=== PATIENT | female | born 1990 | race Caucasian/White ===

== ENCOUNTER 2017-12-02 17:19 | Emergency (ER) | payer OTHER ==
[~2017-12-02] VITALS: Ht 162.6 cm; Wt 68.0 kg
[~2017-12-02 17:19] MED LIST: ALPR.5 PO; ALPR1 PO; AMOX875 PO; AZIT250 PO; Amoxicillin500 MG PO; Augmentin 875-1 EACH PO; BIRTH CONTROL; BUPR150ER PO; Bactroban22 GM TOP; CALCA500CH PO; CEPH500; CEPH500 PO; CIPR500 PO; CITA20 PO; CODACE30 PO; CODGUAEL PO; CRUTCH4 USE; DEPO PROVERA IM; ERYT.5TO OU; ESCI10; ESCI10 PO; ESCI20 PO; ESCI5 PO; FAMO20 PO; FLUT110OIA IH; HYDACE5 PO; HYDHCL10 PO; IBUP400 PO; IBUP600 PO; IBUP800 PO; KEFLEX; Keflex500 MG PO; LACT10SY PO; LITH300C PO; MEDR150I; MEDR150I IM; MULVITMINE PO; Norco 5-325 Ta1 EACH PO; ONDA4 PO; ONDA4ODT MM; ONDA8ODT MM; ORTHO TRI CYCLEN; OXYACE5T PO; PENVK500; PERM5TC TOP; PHENERGAN; POTCHL20ER PO; PROACE100 PO; PROC10 PO; PROCODE120 PO; PROM25 PO; Percocet 5-3251 EACH PO; Prednisone20 MG PO; RXCODGUASY PO; RXHYD5325 PO; RXHYDACE PO; RXONDA4ODT MM; RXPROACE PO; Robaxin500 MG PO; SULTRIDS PO; TYLENOL PM EX-1 EAC1 PO; Veetids 500500 MG PO; Zofran Odt8 MG SL
[2017-12-02 18:29] LABS: BASOPHILS ABSOLUTE AUTO 0.02 K/mm3 (0.00-0.23); BASOPHILS PERCENT AUTO 0 % (0-2); EOSINOPHILS PERCENT AUTO 0 % (0-6); Hematocrit 39.6 % (33.0-51.0); Hemoglobin 12.7 g/dL (11.5-16.0); IMMATURE GRAN ABSOLUTE AUTO 0.06 K/mm3 (0.00-0.10); IMMATURE GRAN PERCENT AUTO 1 % (0-1); LYMPHOCYTES ABSOLUTE AUTO 1.07 K/mm3 (0.84-5.20); LYMPHOCYTES PERCENT AUTO 8 % (21-46); MONOCYTES ABSOLUTE AUTO 1.42 K/mm3 (0.16-1.47); MONOCYTES PERCENT AUTO 11 % (4-13); Mean Corpuscular HGB 26.5 pg (26.0-34.0); Mean Corpuscular HGB Conc 32.1 g/dL (31.5-36.5); Mean Corpuscular Volume 83 fL (80-100); Mean Platelet Volume 10.5 fL (9.1-12.4); NEUTROPHILS ABSOLUTE AUTO 10.67 K/mm3 (1.96-9.15); NEUTROPHILS PERCENT AUTO 81 % (41-73); Platelet Count 231 K/mm3 (150-400); RDW Coefficient Variation 13.1 % (11.7-14.2); RDW Standard Deviation 39.6 fL (35.1-46.3); Red Blood Cell Count 4.79 M/mm3 (3.80-5.20); White Blood Cell Count 13.24 K/mm3 (4.00-11.30)
[2017-12-02 18:45] LABS: Alanine Aminotransfer (ALT/SGP 22 U/L (12-78); Albumin, Blood 3.6 g/dL (3.4-5.0); Albumin/Globulin Ratio 1.1 (0.8-1.8); Alk Phos 83 U/L (50-136); Anion Gap 5 mmol/L (6-16); Aspartate Aminotrans (AST/SGOT 12 U/L (12-37); Bilirubin, Total 0.3 mg/dL (0.1-1.0); Blood Urea Nitrogen 5 mg/dL (8-24); Bun/Creatinine Ratio 7.6 (12.0-20.0); CO2, Blood 28 mmol/L (21-32); Calcium, Blood 8.5 mg/dL (8.5-10.1); Chloride, Blood 103 mmol/L (98-108); Creatinine, Blood 0.66 mg/dL (0.40-1.00); Globulin, Blood 3.4 g/dL (2.2-4.0); Glomerular Filtration Rate >60 (60-); Glucose, Blood 97 mg/dL (70-99); Potassium, Blood 3.8 mmol/L (3.5-5.5); Sodium, Blood 136 mmol/L (136-145)
[2017-12-02 19:29] LABS: Influenza A Negative (NEGATIVE); Influenza B Negative (NEGATIVE)
[2017-12-02] MEDS ORDERED: Amoxicillin875 MG PO (19:54)
[2017-12-02] MEDS ORDERED: NYST237S MT (19:55)
== END 2017-12-02 20:10 | disposition home or self-care (01) ==
LOC: ER 17:19
PROVIDERS: Emergency Medicine; Physician Assistant
DX: J02.0 Streptococcal pharyngitis (principal); F41.9 Anxiety disorder, unspecified; G43.909 Migraine, unspecified, not intractable, without status migrainosus; F32.9 Major depressive disorder, single episode, unspecified; F17.210 Nicotine dependence, cigarettes, uncomplicated
CPT/HCPCS: 36415; 71046; 80053; 81000; 81025; 83605; 85025; 87081; 87430; 87804; 96361; 96374; 99283; J1100; J1885; J7030

== ENCOUNTER 2018-02-10 04:48 | Emergency (ER) | payer OTHER ==
[~2018-02-10] VITALS: Ht 162.6 cm; Wt 63.5 kg
[~2018-02-10 04:48] MED LIST changes: +Amoxicillin875 MG PO; +NYST237S MT
[2018-02-10] MEDS ORDERED: LATUDA20 MG (05:05)
[2018-02-10] MEDS ORDERED: LAMO25 (05:05)
[2018-02-10] MEDS ORDERED: Vistaril50 MG PO (05:16)
[2018-02-11] MEDS ORDERED: Pepcid40 MG PO (18:43)
[2018-02-11] MEDS ORDERED: CLARITIN10 MG PO (18:43)
[2018-02-11] MEDS ORDERED: Prednisone20 MG PO (18:43)
== END 2018-02-10 05:41 | disposition home or self-care (01) ==
LOC: ER 04:48
DX: L25.9 Unspecified contact dermatitis, unspecified cause (principal); F41.9 Anxiety disorder, unspecified; F32.9 Major depressive disorder, single episode, unspecified; F17.210 Nicotine dependence, cigarettes, uncomplicated; Z79.899 Other long term (current) drug therapy
CPT/HCPCS: J1100

== ENCOUNTER 2018-02-11 16:58 | Emergency (ER) | payer OTHER ==
[~2018-02-11] VITALS: Ht 162.6 cm; Wt 63.5 kg
[~2018-02-11 16:58] MED LIST changes: +LAMO25; +LATUDA20 MG; +Vistaril50 MG PO
[2018-02-11] MEDS ORDERED: Prednisone20 MG PO (18:43)
[2018-02-11] MEDS ORDERED: Pepcid40 MG PO (18:43)
[2018-02-11] MEDS ORDERED: CLARITIN10 MG PO (18:43)
== END 2018-02-11 19:15 | disposition home or self-care (01) ==
LOC: ER 16:58
DX: T78.40XA Allergy, unspecified, initial encounter (principal); F41.9 Anxiety disorder, unspecified; F32.9 Major depressive disorder, single episode, unspecified; F17.210 Nicotine dependence, cigarettes, uncomplicated; Z79.899 Other long term (current) drug therapy
CPT/HCPCS: 96372; 99283; J1100

== ENCOUNTER 2018-07-03 02:46 | Emergency (ER) | payer OTHER ==
[~2018-07-03] VITALS: Ht 162.6 cm; Wt 59.0 kg
[~2018-07-03 02:46] MED LIST changes: +CLARITIN10 MG PO; +Pepcid40 MG PO
[2018-07-03 03:49] LABS: BASOPHILS ABSOLUTE AUTO 0.03 K/mm3 (0.00-0.23); BASOPHILS PERCENT AUTO 0 % (0-2); EOSINOPHILS ABSOLUTE AUTO 0.07 K/mm3 (0.00-0.68); EOSINOPHILS PERCENT AUTO 1 % (0-6); Hematocrit 43.1 % (33.0-51.0); Hemoglobin 13.9 g/dL (11.5-16.0); IMMATURE GRAN ABSOLUTE AUTO 0.02 K/mm3 (0.00-0.10); IMMATURE GRAN PERCENT AUTO 0 % (0-1); LYMPHOCYTES ABSOLUTE AUTO 1.85 K/mm3 (0.84-5.20); LYMPHOCYTES PERCENT AUTO 27 % (21-46); MONOCYTES ABSOLUTE AUTO 0.82 K/mm3 (0.16-1.47); MONOCYTES PERCENT AUTO 12 % (4-13); Mean Corpuscular HGB 27.1 pg (26.0-34.0); Mean Corpuscular HGB Conc 32.3 g/dL (31.5-36.5); Mean Corpuscular Volume 84 fL (80-100); Mean Platelet Volume 9.8 fL (9.1-12.4); NEUTROPHILS ABSOLUTE AUTO 4.16 K/mm3 (1.96-9.15); NEUTROPHILS PERCENT AUTO 60 % (41-73); Platelet Count 272 K/mm3 (150-400); RDW Standard Deviation 39.8 fL (35.1-46.3); Red Blood Cell Count 5.12 M/mm3 (3.80-5.20); White Blood Cell Count 6.95 K/mm3 (4.00-11.30)
[2018-07-03 03:53] LABS: Source, Urine Clean Catch
[2018-07-03 03:55] LABS: Bilirubin, Urine Neg (Neg); Blood, Urine Neg (Neg); Glucose Qualitative, Urine Neg (Neg); Ketones, Urine Neg (Neg); Leukocyte Esterase, Urine 2+ (Neg); Nitrite, Urine Neg (Neg); Protein, Urine 1+ (Neg); Specific Gravity, Urine 1.025 (1.003-1.022); Urobilinogen, Urine 1+ (Normal)
[2018-07-03 04:09] LABS: Appearance, Urine Hazy (Clear); Color, Urine Yellow (P-Yellow)
[2018-07-03 04:12] LABS: Red Blood Cells, Urine 0-2 /hpf (0-2)
[2018-07-03 04:13] LABS: Bacteria Mod /hpf; Squamous Epithelial Cells Few /hpf (Few)
== END 2018-07-03 04:12 | disposition left against medical advice (07) ==
LOC: ER 02:46
PROVIDERS: Emergency Medicine
DX: N93.9 Abnormal uterine and vaginal bleeding, unspecified (principal); F41.9 Anxiety disorder, unspecified; F32.9 Major depressive disorder, single episode, unspecified; F17.210 Nicotine dependence, cigarettes, uncomplicated; Z79.899 Other long term (current) drug therapy
CPT/HCPCS: 36415; 81001; 84702; 85025; 87086; 99283

== ENCOUNTER 2018-08-26 21:47 | Emergency (ER) | payer OTHER ==
[~2018-08-26] VITALS: Wt 64.2 kg
[~2018-08-26 21:47] MED LIST changes: +Bactrim Ds Tab1 EACH PO; +LEVO750 PO
[2018-08-26 22:09] LABS: Source, Urine Clean Catch
[2018-08-26 22:12] LABS: Bilirubin, Urine Neg (Neg); Blood, Urine Neg (Neg); Glucose Qualitative, Urine Neg (Neg); Ketones, Urine Neg (Neg); Leukocyte Esterase, Urine 2+ (Neg); Nitrite, Urine Neg (Neg); Protein, Urine 1+ (Neg); Urobilinogen, Urine NORM (Normal)
[2018-08-26 22:29] LABS: Color, Urine Yellow (P-Yellow)
[2018-08-26 22:30] LABS: Appearance, Urine Clear (Clear); Bacteria Many /hpf; Red Blood Cells, Urine 0-2 /hpf (0-2); Squamous Epithelial Cells Mod /hpf (Few)
[2018-08-26 22:31] LABS: Mucus Light (0-Heavy)
== END 2018-08-26 22:30 | disposition left against medical advice (07) ==
LOC: ER 21:47
PROVIDERS: Emergency Medicine
DX: Z53.21 Procedure and treatment not carried out due to patient leaving prior to being seen by health care provider (principal)
CPT/HCPCS: 81001; 81025; 87086

== ENCOUNTER 2018-08-26 23:03 | Observation (INO) | payer OTHER ==
[~2018-08-26] VITALS: Ht 162.6 cm; Wt 64.2 kg
[2018-08-26 23:37] LABS: BASOPHILS ABSOLUTE AUTO 0.04 K/mm3 (0.00-0.23); BASOPHILS PERCENT AUTO 0 % (0-2); EOSINOPHILS ABSOLUTE AUTO 0.03 K/mm3 (0.00-0.68); EOSINOPHILS PERCENT AUTO 0 % (0-6); Hematocrit 43.5 % (33.0-51.0); Hemoglobin 13.8 g/dL (11.5-16.0); IMMATURE GRAN ABSOLUTE AUTO 0.06 K/mm3 (0.00-0.10); IMMATURE GRAN PERCENT AUTO 0 % (0-1); LYMPHOCYTES PERCENT AUTO 14 % (21-46); MONOCYTES ABSOLUTE AUTO 1.23 K/mm3 (0.16-1.47); MONOCYTES PERCENT AUTO 7 % (4-13); Mean Corpuscular HGB 27.3 pg (26.0-34.0); Mean Corpuscular HGB Conc 31.7 g/dL (31.5-36.5); Mean Corpuscular Volume 86 fL (80-100); NEUTROPHILS ABSOLUTE AUTO 13.15 K/mm3 (1.96-9.15); NEUTROPHILS PERCENT AUTO 78 % (41-73); Platelet Count 300 K/mm3 (150-400); RDW Coefficient Variation 13.4 % (11.7-14.2); RDW Standard Deviation 41.4 fL (35.1-46.3); Red Blood Cell Count 5.06 M/mm3 (3.80-5.20); White Blood Cell Count 16.81 K/mm3 (4.00-11.30)
[2018-08-27 00:02] LABS: Alanine Aminotransfer (ALT/SGP 28 U/L (12-78); Albumin, Blood 4.1 g/dL (3.4-5.0); Albumin/Globulin Ratio 1.1 (0.8-1.8); Alk Phos 84 U/L (50-136); Anion Gap 10 mmol/L (6-16); Aspartate Aminotrans (AST/SGOT 17 U/L (12-37); Bilirubin, Total 0.1 mg/dL (0.1-1.0); Blood Urea Nitrogen 19 mg/dL (8-24); Bun/Creatinine Ratio 22.4 (12.0-20.0); CO2, Blood 24 mmol/L (21-32); Calcium, Blood 8.9 mg/dL (8.5-10.1); Chloride, Blood 107 mmol/L (98-108); Creatinine, Blood 0.85 mg/dL (0.40-1.00); Ethanol (Alcohol), Blood, Med <3 mg/dL; Globulin, Blood 3.9 g/dL (2.2-4.0); Glomerular Filtration Rate >60 (60-); Glucose, Blood 102 mg/dL (70-99); Potassium, Blood 3.7 mmol/L (3.5-5.5); Salicylate <1.7 mg/dL (2.8-20.0); Sodium, Blood 141 mmol/L (136-145)
[2018-08-27 00:06] LABS: Acetaminophen, Random <2.0 ug/mL (10.0-30.0)
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
[2018-08-27 04:29] LABS: U Amphetamine Screen Not Detected; U Barbituate Screen Not Detected; U Benzodiazapine Screen DETECTED; U Buprenorphine Screen Not Detected; U Cannabinoids Screen Not Detected; U Cocaine Screen Not Detected; U Methadone Screen Not Detected; U Methamphetamine Screen DETECTED; U Opiates Screen Not Detected; U Oxycodone Screen Not Detected; U Phencyclidine Screen Not Detected; U Propoxyphene Screen Not Detected
[2018-08-27 05:17] LABS: Source, Urine Clean Catch
[2018-08-27 05:20] LABS: Hematocrit 40.1 % (33.0-51.0); Hemoglobin 12.6 g/dL (11.5-16.0); Mean Corpuscular HGB 26.8 pg (26.0-34.0); Mean Corpuscular HGB Conc 31.4 g/dL (31.5-36.5); Mean Corpuscular Volume 85 fL (80-100); Mean Platelet Volume 9.8 fL (9.1-12.4); Platelet Count 258 K/mm3 (150-400); RDW Coefficient Variation 13.5 % (11.7-14.2); RDW Standard Deviation 42.1 fL (35.1-46.3); Red Blood Cell Count 4.71 M/mm3 (3.80-5.20); White Blood Cell Count 24.02 K/mm3 (4.00-11.30)
[2018-08-27 05:22] LABS: Bilirubin, Urine Neg (Neg); Blood, Urine Neg (Neg); Glucose Qualitative, Urine Neg (Neg); Ketones, Urine 1+ (Neg); Leukocyte Esterase, Urine Neg (Neg); Nitrite, Urine Neg (Neg); Protein, Urine Neg (Neg); Specific Gravity, Urine 1.025 (1.003-1.022); Urobilinogen, Urine NORM (Normal)
[2018-08-27 05:46] LABS: Alanine Aminotransfer (ALT/SGP 24 U/L (12-78); Albumin, Blood 3.8 g/dL (3.4-5.0); Albumin/Globulin Ratio 1.1 (0.8-1.8); Alk Phos 77 U/L (50-136); Anion Gap 10 mmol/L (6-16); Aspartate Aminotrans (AST/SGOT 25 U/L (12-37); Bilirubin, Total 0.3 mg/dL (0.1-1.0); Blood Urea Nitrogen 19 mg/dL (8-24); Bun/Creatinine Ratio 29.4 (12.0-20.0); CO2, Blood 24 mmol/L (21-32); Calcium, Blood 8.4 mg/dL (8.5-10.1); Chloride, Blood 107 mmol/L (98-108); Creatinine, Blood 0.65 mg/dL (0.40-1.00); Globulin, Blood 3.4 g/dL (2.2-4.0); Glomerular Filtration Rate >60 (60-); Glucose, Blood 102 mg/dL (70-99); Potassium, Blood 3.7 mmol/L (3.5-5.5); Sodium, Blood 141 mmol/L (136-145); Total Protein, Blood 7.2 g/dL (6.4-8.2)
[2018-08-27 05:53] LABS: Color, Urine Yellow (P-Yellow)
[2018-08-27 05:54] LABS: Appearance, Urine Clear (Clear)
--- NOTE | 2018-08-27 10:14 | NUR ---
RECIEVED FOLLOW UP CALL FROM MAGGIE BYRD, SPOKE WITH ANGELI. HIS RECOMMENDATION WAS THAT THE PATIENT HAVE A SCOPE WITHIN THE FIRST 24 HOURS OF INGESTION. RN SPOKE WITH DR. JAUREGUI.
--- NOTE | 2018-08-27 12:39 | NUR ---
ELVIS HAS NEW COMPLAINT OF SHARP PAIN IN LUQ. RN RECHECKED VS TEMP 100.3, PULSE 108, BP 112/68, RR 18, PULSE OX 98%. PATIENT IS SLEEPING DURING THIS TIME. UNCOOPERATIVE WITH ANSWERING MY QUESTIONS REGARDING THE PAIN. DENIES SOB, STATES ITS DIFFICULT TO SWALLOW. NPO AT THIS TIME UNTIL SEEN BY GI CONSULT. DR. GOULD NOTIFIED. PATIENT CURRENTLY SLEEPING. RN WILL CONTINUE TO MONITOR.
--- NOTE | 2018-08-27 15:55 | NUR ---
08/27/18 1555 Munira Abdullahi History, Chart, Medications and Allergies reviewed before start of procedure.PATIENT DETERMINED TO BE ASA APPROPRIATE FOR PROPOFOL SEDATION PRIOR TO START OF PROCEDURE BY .MONITOR INTACT WITH CONTINUOUS PULSE OXIMETRY AND INTERMITTENT BP.3-LEAD EKG REVIEWED WITH PHYSICIAN PRIOR TO START OF PROCEDURE.O2 VIA N/C INTACT THROUGHOUT SEDATION/PROCEDURE.
--- NOTE | 2018-08-27 17:05 | NUR ---
PATIENT RETURNED FROM PROCEDURE AT 1625. VSS. STILL VERY SLEEPY BUT IS AROUSABLE TO ANSWER QUESTIONS. FLUIDS RESTARTED PER ORDERS. PATIENT RESTING COMFORTABLY. RN WILL CONTINUE TO MONITOR.
--- NOTE | 2018-08-27 18:26 | NUR ---
SHIFT SUMMARY PATIENT A&O X4, HAS BEEN SLEEPING THROUGHOUT THE SHIFT. IV ABX RUNNING. DENIED SOB BUT SAID THAT IT HURT HER TO SWALLOW. HAD COMPLAINTS OF A NEW LUQ PAIN, STATED IT WAS A SHARP STABBING PAIN. RN NOTIFIED DR. KANG, PATIENT WAS SLEEPING WHEN I RETURNED TO THE ROOM TO REASSES DID NOT SEEM TO BE IN ANY ACUTE DISTRESS. WENT FOR AN EDG TODAY. RETURNED TO HER ROOM AT 1620. WAS VERY SLEEPU ON RETURN, WOULD ANSWER YES AND NO QUESTIONS FOR THE NURSE. AT TIMES THE PATIENT WOULD NOT ANSWER ANY OF MY QUESTIONS AND LOOK THOUGH SHE WAS SLEEPING BUT WHEN I LEFT THE ROOM WOULD BE TALKING TO HER GUESTS. DR. JAUREGUI WAS IN TO SEE THE PATIENT, STARTED HER ON CLEAR LIQUID DIET. PATIENT IS STILL RESTING. FAMILY AT THE BEDSIDE. VSS. FLUIDS RUNNING. NO ACUTE CHANGES. RN WILL CONTINUE TO MONITOR.
[2018-08-28 05:23] LABS: BASOPHILS ABSOLUTE AUTO 0.05 K/mm3 (0.00-0.23); BASOPHILS PERCENT AUTO 0 % (0-2); EOSINOPHILS ABSOLUTE AUTO 0.03 K/mm3 (0.00-0.68); EOSINOPHILS PERCENT AUTO 0 % (0-6); Hematocrit 40.5 % (33.0-51.0); Hemoglobin 12.7 g/dL (11.5-16.0); IMMATURE GRAN ABSOLUTE AUTO 0.07 K/mm3 (0.00-0.10); IMMATURE GRAN PERCENT AUTO 0 % (0-1); LYMPHOCYTES ABSOLUTE AUTO 1.78 K/mm3 (0.84-5.20); LYMPHOCYTES PERCENT AUTO 11 % (21-46); MONOCYTES ABSOLUTE AUTO 1.26 K/mm3 (0.16-1.47); MONOCYTES PERCENT AUTO 8 % (4-13); Mean Corpuscular HGB 27.4 pg (26.0-34.0); Mean Corpuscular HGB Conc 31.4 g/dL (31.5-36.5); Mean Corpuscular Volume 87 fL (80-100); Mean Platelet Volume 10.1 fL (9.1-12.4); NEUTROPHILS ABSOLUTE AUTO 13.36 K/mm3 (1.96-9.15); NEUTROPHILS PERCENT AUTO 81 % (41-73); Platelet Count 257 K/mm3 (150-400); RDW Coefficient Variation 13.9 % (11.7-14.2); RDW Standard Deviation 44.6 fL (35.1-46.3); Red Blood Cell Count 4.64 M/mm3 (3.80-5.20); White Blood Cell Count 16.55 K/mm3 (4.00-11.30)
[2018-08-28 05:46] LABS: Anion Gap 6 mmol/L (6-16); Blood Urea Nitrogen 8 mg/dL (8-24); Bun/Creatinine Ratio 13.7 (12.0-20.0); CO2, Blood 26 mmol/L (21-32); Calcium, Blood 8.4 mg/dL (8.5-10.1); Chloride, Blood 108 mmol/L (98-108); Creatinine, Blood 0.58 mg/dL (0.40-1.00); Glomerular Filtration Rate >60 (60-); Glucose, Blood 96 mg/dL (70-99); Potassium, Blood 4.2 mmol/L (3.5-5.5); Sodium, Blood 140 mmol/L (136-145)
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
[2018-08-28] MEDS ORDERED: DOCU100 PO (10:36)
[2018-08-28] MEDS ORDERED: PANT40 PO (10:38)
[2018-08-28] MEDS ORDERED: NICO21TP TOP (10:40)
--- NOTE | 2018-08-28 12:05 | NUR ---
DISCHARGE NOTE MEDICATIONS FAXED TO PREFERED PHARMACY. IV DC'D WNL. PT PROVIDED WITH HARDCOPY AND VERBAL INSTRUCTIONS FOR DISCHARGE INCLUDING: DIAGNOSES, FOLLOW UP APPOINTMENT INSTRUCTIONS, DIETARY GUIDELINES AND RECOMMENDATIONS, AND MEDICATION INSTRUCTIONS. PT HAD NO FURTHER QUESTIONS. PT IS INDEPENDENT AND DRESSED HERSELF. PT DECLINED ESCORT AND WAS ESCORTED OUT BY FAMILY MEMBER.
== END 2018-08-28 12:05 | disposition home or self-care (01) ==
LOC: ER 23:03 → MEDS 23:04 → ER 08-27 01:43 → MEDS 08-27 01:54 → ENPENDDIS 08-28 09:54 → EDPENDDIS 08-28 09:54 → MEDS 08-28 12:05
PROVIDERS: Emergency Medicine; Internal Medicine; Internal Medicine Gastroenterology; ADMIT Internal Medicine
PROC: 0DJ08ZZ Inspection of Upper Intestinal Tract, Via Natural or Artificial Opening Endoscopic (ICD-10-PCS; principal; 2018-08-27 15:00)
DX: T54.3X2A Toxic effect of corrosive alkalis and alkali-like substances, intentional self-harm, initial encounter (principal); J39.2 Other diseases of pharynx; K22.10 Ulcer of esophagus without bleeding; K25.9 Gastric ulcer, unspecified as acute or chronic, without hemorrhage or perforation; F31.9 Bipolar disorder, unspecified; F41.9 Anxiety disorder, unspecified; M54.9 Dorsalgia, unspecified; G89.29 Other chronic pain; F17.210 Nicotine dependence, cigarettes, uncomplicated; F15.10 Other stimulant abuse, uncomplicated; Z79.899 Other long term (current) drug therapy
CPT/HCPCS: 36415; 80048; 80053; 81001; 81003; 81025; 84443; 85025; 85027; 87086; 93005; 93010; 96361; 96372; 96374; 96375; 96376; 99285-25; C9113; G0378; G0480; J1200; J1630; J1650; J2060; J2250; J7030; J7120

== ENCOUNTER 2018-11-18 14:53 | Emergency (ER) | payer OTHER ==
[~2018-11-18 14:53] MED LIST changes: +DOCU100 PO; +NICO21TP TOP; +PANT40 PO
== END 2018-11-18 16:33 | disposition left against medical advice (07) ==
LOC: ER 14:53
DX: Z53.21 Procedure and treatment not carried out due to patient leaving prior to being seen by health care provider (principal)

== ENCOUNTER 2018-11-19 00:45 | Emergency (ER) | payer OTHER ==
[2018-11-19 02:52] LABS: Source, Urine Clean Catch
[2018-11-19 02:59] LABS: Appearance, Urine Hazy (Clear); Blood, Urine 2+ (Neg); Glucose Qualitative, Urine Neg (Neg); Ketones, Urine Neg (Neg); Leukocyte Esterase, Urine 3+ (Neg); Nitrite, Urine Pos (Neg); Protein, Urine 2+ (Neg); Specific Gravity, Urine 1.015 (1.003-1.022); Urobilinogen, Urine 3+ (Normal); pH, Urine 6.5 (5.0-8.0)
[2018-11-19 03:00] LABS: Bilirubin, Urine 2+ (Neg); Color, Urine Orange (P-Yellow)
[2018-11-19 03:05] LABS: Red Blood Cells, Urine 0-2 /hpf (0-2); Squamous Epithelial Cells Few /hpf (Few); White Blood Cells, Urine TNTC /hpf (0-5)
[2018-11-19 03:06] LABS: Bacteria Many /hpf
== END 2018-11-19 03:00 | disposition left against medical advice (07) ==
LOC: ER 00:45
PROVIDERS: Emergency Medicine
DX: Z53.21 Procedure and treatment not carried out due to patient leaving prior to being seen by health care provider (principal)
CPT/HCPCS: 81001; 81025; 87077; 87086; 87186; 99281

== ENCOUNTER → 2018-11-19 | Outpatient (CLI) | payer OTHER | END | disposition home or self-care (01) | LOC: LAB SHORT 19:10 → LAB EV 19:10 | DX: N39.0 Urinary tract infection, site not specified (principal) | CPT/HCPCS: 87077; 87086; 87186 ==

== ENCOUNTER → 2019-05-05 | Outpatient (CLI) | payer OTHER ==
[~2019-05-05] MED LIST changes: +ACET325 PO; +AMOCLA875 PO; +Fiorinal Capsu1 EACH PO; +Florastor250 MG PO; +MUPIROCIN OINTMENT TOP; +Oyster Shell C500 MG PO; +Pyridium200 MG PO
== END | disposition home or self-care (01) ==
LOC: LAB EV 16:48 → LAB SHORT 16:48
DX: N39.0 Urinary tract infection, site not specified (principal)
CPT/HCPCS: 87077; 87086; 87186

== ENCOUNTER 2019-05-06 03:58 | Emergency (ER) | payer OTHER ==
[~2019-05-06] VITALS: Ht 162.6 cm; Wt 70.3 kg
[~2019-05-06 03:58] MED LIST changes: -ACET325 PO; -AMOCLA875 PO; -Fiorinal Capsu1 EACH PO; -Florastor250 MG PO; -MUPIROCIN OINTMENT TOP; -Oyster Shell C500 MG PO; -Pyridium200 MG PO
[2019-05-06] MEDS ORDERED: CIPR500 PO (04:15)
[2019-05-06 04:22] LABS: Source, Urine Clean Catch
[2019-05-06 04:24] LABS: Blood, Urine 4+ (Neg); Glucose Qualitative, Urine Neg (Neg); Ketones, Urine Neg (Neg); Leukocyte Esterase, Urine 3+ (Neg); Nitrite, Urine Pos (Neg); Protein, Urine 3+ (Neg); Specific Gravity, Urine 1.015 (1.003-1.022); Urobilinogen, Urine 3+ (Normal)
[2019-05-06 04:26] LABS: Appearance, Urine Hazy (Clear); Bilirubin, Urine 3+ (Neg); Color, Urine Orange (P-Yellow)
[2019-05-06 04:36] LABS: Bacteria Few /hpf; Squamous Epithelial Cells Few /hpf (Few); White Blood Cells, Urine TNTC /hpf (0-5)
[2019-05-06] MEDS ORDERED: Pyridium200 MG PO (04:40)
== END 2019-05-06 04:48 | disposition home or self-care (01) ==
LOC: ER 03:58
PROVIDERS: Emergency Medicine
DX: N39.0 Urinary tract infection, site not specified (principal); F31.9 Bipolar disorder, unspecified; G43.909 Migraine, unspecified, not intractable, without status migrainosus; F17.210 Nicotine dependence, cigarettes, uncomplicated
CPT/HCPCS: 81001; 81025; 87086; 99283

== ENCOUNTER → 2019-05-10 | Outpatient (CLI) | payer OTHER ==
[~2019-05-10] MED LIST changes: +ACET325 PO; +AMOCLA875 PO; +Fiorinal Capsu1 EACH PO; +Florastor250 MG PO; +MUPIROCIN OINTMENT TOP; +Oyster Shell C500 MG PO; +Pyridium200 MG PO
[2019-05-13 00:06] LABS: CHLAMYDIA TRACHOMATIS, NAA Negative (Negative); NEISSERIA GONORRHOEAE, NAA Negative (Negative)
== END | disposition home or self-care (01) ==
LOC: LAB SHORT 14:50 → LAB 14:50
PROVIDERS: Physician Assistant
DX: R10.2 Pelvic and perineal pain (principal)
CPT/HCPCS: 87070; 87205; 87491; 87591

== ENCOUNTER 2019-05-31 20:39 | Emergency (ER) | payer OTHER ==
[~2019-05-31] VITALS: Ht 162.6 cm; Wt 63.5 kg
[~2019-05-31 20:39] MED LIST changes: -ACET325 PO; -AMOCLA875 PO; -Fiorinal Capsu1 EACH PO; -Florastor250 MG PO; -MUPIROCIN OINTMENT TOP; -Oyster Shell C500 MG PO
[2019-05-31] MEDS ORDERED: Bactrim Ds Tab1 EACH PO (20:52)
[2019-06-01] MEDS ORDERED: Bactrim Ds Tab1 EACH PO (13:42)
== END 2019-05-31 22:51 | disposition home or self-care (01) ==
LOC: ER 20:39
DX: G43.909 Migraine, unspecified, not intractable, without status migrainosus (principal); F17.210 Nicotine dependence, cigarettes, uncomplicated
CPT/HCPCS: 96361; 96374; 96375; 99283-25; J0780; J1200; J1885; J7030

== ENCOUNTER 2019-06-01 07:39 | Observation (INO) | payer OTHER ==
[~2019-06-01] VITALS: Ht 160 cm; Wt 63.2 kg
[2019-06-01 08:32] LABS: BASOPHILS ABSOLUTE AUTO 0.01 K/mm3 (0.00-0.23); BASOPHILS PERCENT AUTO 0 % (0-2); EOSINOPHILS ABSOLUTE AUTO 0.44 K/mm3 (0.00-0.68); EOSINOPHILS PERCENT AUTO 5 % (0-6); Hematocrit 42.3 % (33.0-51.0); Hemoglobin 13.6 g/dL (11.5-16.0); IMMATURE GRAN ABSOLUTE AUTO 0.05 K/mm3 (0.00-0.10); IMMATURE GRAN PERCENT AUTO 1 % (0-1); LYMPHOCYTES ABSOLUTE AUTO 0.16 K/mm3 (0.84-5.20); LYMPHOCYTES PERCENT AUTO 2 % (21-46); MONOCYTES ABSOLUTE AUTO 0.68 K/mm3 (0.16-1.47); MONOCYTES PERCENT AUTO 8 % (4-13); Mean Corpuscular HGB 26.4 pg (26.0-34.0); Mean Corpuscular HGB Conc 32.2 g/dL (31.5-36.5); Mean Corpuscular Volume 82 fL (80-100); Mean Platelet Volume 10.4 fL (9.1-12.4); NEUTROPHILS PERCENT AUTO 84 % (41-73); Platelet Count 230 K/mm3 (150-400); RDW Coefficient Variation 13.1 % (11.7-14.2); Red Blood Cell Count 5.16 M/mm3 (3.80-5.20); White Blood Cell Count 8.54 K/mm3 (4.00-11.30)
[2019-06-01 08:39] LABS: Alanine Aminotransfer (ALT/SGP 16 U/L (12-78); Albumin, Blood 3.5 g/dL (3.4-5.0); Alk Phos 70 U/L (50-136); Anion Gap 8 mmol/L (6-16); Aspartate Aminotrans (AST/SGOT 10 U/L (12-37); Bilirubin, Total 0.2 mg/dL (0.1-1.0); Blood Urea Nitrogen 14 mg/dL (8-24); Bun/Creatinine Ratio 15.4 (12.0-20.0); CO2, Blood 24 mmol/L (21-32); Calcium, Blood 8.6 mg/dL (8.5-10.1); Chloride, Blood 103 mmol/L (98-108); Creatinine, Blood 0.91 mg/dL (0.40-1.00); Globulin, Blood 3.6 g/dL (2.2-4.0); Glomerular Filtration Rate >60 (60-); Glucose, Blood 97 mg/dL (70-99); Potassium, Blood 3.9 mmol/L (3.5-5.5); Sodium, Blood 135 mmol/L (136-145); Total Protein, Blood 7.1 g/dL (6.4-8.2)
[2019-06-01 09:26] LABS: Source, Urine Clean Catch
[2019-06-01 09:28] LABS: Appearance, Urine Clear (Clear); Bilirubin, Urine Neg (Neg); Blood, Urine Neg (Neg); Color, Urine Yellow (P-Yellow); Glucose Qualitative, Urine Neg (Neg); Ketones, Urine Neg (Neg); Leukocyte Esterase, Urine 1+ (Neg); Nitrite, Urine Neg (Neg); Protein, Urine Neg (Neg); Specific Gravity, Urine 1.015 (1.003-1.022); Urobilinogen, Urine NORM (Normal)
[2019-06-01 09:43] LABS: Bacteria Mod /hpf; Red Blood Cells, Urine 0-2 /hpf (0-2); Squamous Epithelial Cells Many /hpf (Few)
[2019-06-01 12:22] LABS: Glucose, CSF 64 mg/dL (40-70)
[2019-06-01 12:48] LABS: Appearance, CSF Clear (Clear); Color, CSF No Color (No Color); WBC Count, CSF 10 /mm3 (0-5)
[2019-06-01 13:21] LABS: Lymphocytes, CSF 9 % (40-80); Monocytes, CSF 83 % (15-45); Neutrophils, CSF 8 % (0-6)
[2019-06-01 13:23] LABS: RBC Count, CSF 0 /mm3 (0-0)
[2019-06-01] MEDS ORDERED: Bactrim Ds Tab1 EACH PO (13:42)
--- NOTE | 2019-06-01 15:15 | NUR ---
Assumed care Received report from ER nurse Ingrid. Pt arrived to unit via bed, A/Ox4. Transferred self independently to medical bed. NS @ 100 mls/hr. Pt oriented to room and call light. Independent to the bathroom.
[2019-06-01 17:36] LABS: U Amphetamine Screen Not Detected; U Barbituate Screen Not Detected; U Benzodiazapine Screen Not Detected; U Buprenorphine Screen Not Detected; U Cannabinoids Screen Not Detected; U Cocaine Screen Not Detected; U Methadone Screen Not Detected; U Methamphetamine Screen Not Detected; U Opiates Screen DETECTED; U Oxycodone Screen Not Detected; U Phencyclidine Screen Not Detected; U Propoxyphene Screen Not Detected
--- NOTE | 2019-06-01 18:01 | NUR ---
Shift Summary A/Ox4, independent in room. Patient has LR @ 100mls/hr. Still c/o pain, but pain "is coming down." No c/o N/V/D. Pt is a current smoker and able to make needs known. Clear liquid at this time, advance diet as tolerated per MD orders. VSS, afebrile. No other acute changes this shift. Will continue to monitor.
[2019-06-01 19:58] LABS: Cryptococcus Neoformans/Gattii Not Detected (NOT DETECT); Enterovirus Not Detected (NOT DETECT); Escherichia Coli K1 Not Detected (NOT DETECT); Haemophilus Influenza Not Detected (NOT DETECT); Herpes Simplex Virus 1 Not Detected (NOT DETECT); Herpes Simplex Virus 2 Not Detected (NOT DETECT); Human Herpesvirus 6 Not Detected (NOT DETECT); Human Parechovirus Not Detected (NOT DETECT); Listeria Monocytogenes Not Detected (NOT DETECT); Neisseria Meningitidis Not Detected (NOT DETECT); Streptococcus Agalactiae Not Detected (NOT DETECT); Streptococcus Pneumoniae Not Detected (NOT DETECT); Varicella Zoster Virus Not Detected (NOT DETECT)
--- NOTE | 2019-06-02 03:30 | NUR ---
06/02/19 0215 PT RANG AND C/O HEAD AND NECK PAIN WITH SLIGHT NAUSEA. MEDICATED PER OCT AND REQUESTED "SOME FOOD". SANDWICH,APPLESAUCE,PUDDING AND SODA GIVEN. EATING WITHOUT ISSUES. UP TO THE BATHROOM FOR VOIDING.
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
--- NOTE | 2019-06-02 07:27 | NUR ---
Received in report pt tolerated solid food well. Diet advanced to Regular.
--- NOTE | 2019-06-02 08:50 | NUR ---
Pt declined Lovenox because it "hurts". Educated on risk involved with not receiving medication (risk of DVT). Pt verbalize understanding; however, still refused. Will use SCD's as ordered.
--- NOTE | 2019-06-02 10:09 | NUR ---
Pt ambulated outside after a shower. States pain came down from an 8/10 to 6/10 after meds given per EMAR. No c/o of N/V. A/O, independent.
--- NOTE | 2019-06-02 11:33 | NUR ---
PT IS CURRENTLY SLEEPING IN BED COMFORTABLY.
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
--- NOTE | 2019-06-02 15:18 | NUR ---
Physician notified Dr. Castro notified RE pt requesting immodium for diarrhea. Orders received.
[2019-06-02] MEDS ORDERED: IBUP600 PO (16:00)
[2019-06-02] MEDS ORDERED: MUPIROCIN OINTMENT TOP (16:03)
--- NOTE | 2019-06-02 16:26 | NUR ---
Shift/Discharge Summary A/Ox4. Discharge and education paperwork reviewed with patient. Gave time for questions. [place] new patient packet provided to patient and instructed to establish care and f/u within 72 hours of discharge. Pt discharged to friend's home via car. Declined to be wheeled out, instead escorted self out. Personal belongings sent with pt. IV removed, WNL. Meds faxed to preferred pharmacy.
== END 2019-06-02 16:23 | disposition home or self-care (01) ==
LOC: ER 07:39 → MEDS 07:40 → ER 15:07 → MEDS 15:07
PROVIDERS: Emergency Medicine; ADMIT Family Medicine
DX: G43.919 Migraine, unspecified, intractable, without status migrainosus (principal); E87.1 Hypo-osmolality and hyponatremia; F17.200 Nicotine dependence, unspecified, uncomplicated; M54.9 Dorsalgia, unspecified; G89.29 Other chronic pain; F32.9 Major depressive disorder, single episode, unspecified; F17.210 Nicotine dependence, cigarettes, uncomplicated; F41.9 Anxiety disorder, unspecified; Z98.890 Other specified postprocedural states; Z98.51 Tubal ligation status; Z90.721 Acquired absence of ovaries, unilateral; Z86.59 Personal history of other mental and behavioral disorders
CPT/HCPCS: 36415; 62270; 77003; 80053; 81001; 81025; 82945; 83605; 84157; 85025; 87040; 87070; 87086; 87205; 87252; 87254; 87483; 89051; 96361-59; 96365-59; 96367-59; 96375-59; 99284-25; A9270; G0378; J0696; J1170; J1200; J1650; J1885; J2060; J2405; J2550; J3370; J7030; J7120; J8499

== ENCOUNTER 2019-06-07 01:26 | Inpatient (IN) | payer OTHER ==
[~2019-06-07] VITALS: Ht 162.6 cm; Wt 63.5 kg
[~2019-06-07 01:26] MED LIST changes: +MUPIROCIN OINTMENT TOP
[2019-06-07 04:52] LABS: Hematocrit 42.6 % (33.0-51.0); Hemoglobin 13.6 g/dL (11.5-16.0); Mean Corpuscular HGB 26.5 pg (26.0-34.0); Mean Corpuscular HGB Conc 31.9 g/dL (31.5-36.5); Mean Corpuscular Volume 83 fL (80-100); Mean Platelet Volume 9.6 fL (9.1-12.4); Platelet Count 317 K/mm3 (150-400); RDW Coefficient Variation 12.7 % (11.7-14.2); RDW Standard Deviation 38.5 fL (35.1-46.3); Red Blood Cell Count 5.14 M/mm3 (3.80-5.20); White Blood Cell Count 18.13 K/mm3 (4.00-11.30)
[2019-06-07 05:11] LABS: BAND PERCENT MAN 13 % (0-8); BASOPHILS PERCENT MAN 0 % (0-2); EOSINOPHILS PERCENT MAN 0 % (0-6); LYMPHOCYTES ABSOLUTE MAN 0.36 K/mm3 (0.84-5.20); LYMPHOCYTES PERCENT MAN 2 % (21-46); MONOCYTES ABSOLUTE MAN 0.36 K/mm3 (0.16-1.47); MONOCYTES PERCENT MAN 2 % (4-13); SEG NEUTROPHILS PERCENT MAN 83 % (41-73); TOTAL CELLS COUNTED 100
[2019-06-07 05:13] LABS: Alanine Aminotransfer (ALT/SGP 25 U/L (12-78); Albumin, Blood 3.6 g/dL (3.4-5.0); Albumin/Globulin Ratio 1.1 (0.8-1.8); Alk Phos 59 U/L (50-136); Anion Gap 10 mmol/L (6-16); Aspartate Aminotrans (AST/SGOT 14 U/L (12-37); Bilirubin, Total 0.3 mg/dL (0.1-1.0); Blood Urea Nitrogen 15 mg/dL (8-24); Bun/Creatinine Ratio 16.4 (12.0-20.0); CO2, Blood 23 mmol/L (21-32); Calcium, Blood 8.9 mg/dL (8.5-10.1); Chloride, Blood 105 mmol/L (98-108); Creatinine, Blood 0.92 mg/dL (0.40-1.00); Globulin, Blood 3.4 g/dL (2.2-4.0); Glomerular Filtration Rate >60 (60-); Glucose, Blood 128 mg/dL (70-99); Potassium, Blood 3.6 mmol/L (3.5-5.5); Sodium, Blood 138 mmol/L (136-145)
[2019-06-07 05:27] LABS: International Normalized Ratio 0.96; Prothrombin Time Results 10.2 Sec (9.7-11.5)
--- NOTE | 2019-06-07 07:02 | NUR ---
0655 PT ADMITTED TO ROOM 339 PER CART.
--- NOTE | 2019-06-07 09:33 | NUR ---
PATIENT DID NOT EAT BREAKFAST THIS SHIFT DUE TO NO TRAY BEING AVAILBLE AT THIS TIME ASLO PATIENT NOT BEIN AWAKE ENOUGH AT THIS TIME TO EAT. WHEN PATIENT WAKES UP AND IS HUNGRY I WILL GET HER SOMETHING TO EAT SHE DOES HAVE DIET ORDER. RN NOTIFIED.
--- NOTE | 2019-06-07 14:15 | NUR ---
PATIENT DID NOT EAT LUNCH THIS SHIFT DUE TO NOT BEING AWAKE ENOUGH AT THIS TIME. RN NOTIFIED.
[2019-06-07 16:09] LABS: Source, Urine Catheter
[2019-06-07 16:16] LABS: Appearance, Urine Clear (Clear); Bilirubin, Urine Neg (Neg); Blood, Urine Neg (Neg); Color, Urine Amber (P-Yellow); Glucose Qualitative, Urine Neg (Neg); Ketones, Urine Neg (Neg); Leukocyte Esterase, Urine 1+ (Neg); Nitrite, Urine Neg (Neg); Protein, Urine 2+ (Neg); Specific Gravity, Urine 1.005 (1.003-1.022); Urobilinogen, Urine NORM (Normal)
[2019-06-07 16:22] LABS: Bacteria Many /hpf; Mucus Light (0-Heavy); Red Blood Cells, Urine 0-2 /hpf (0-2); Squamous Epithelial Cells Mod /hpf (Few)
--- NOTE | 2019-06-07 18:00 | NUR ---
PATIENT DID NOT EAT DINNER THIS SHIFT DUE TO BEING NOT AWAKE ENOUUGH AT THIS TIME. RN NOTIFIED.
--- NOTE | 2019-06-07 18:32 | NUR ---
SHIFT SUMMARY PATIENT ADMITTED TO FLOOR NOT ORIENTED AND VERY SOMNOLENT, SHE GRIMACES AND MOANS WITH TACTILE STIMULATION/TRANSFERRING CART TO BED. SHE GRADUALLY BECAME A LITTLE MORE AWAKE THIS SHIFT, SHE FALLS ASLEEP EXTREMELY EASILY AND KEEPS EYES CLOSED MOST OF TIME. SHE REPOSITIONS HERSELF IN BED FREQUENTLY AND WITH EACH TURN SHE MOANS AND YELLS OUT, SOMETIMES YELLING OBCENITIES AND "PLEASE HELP ME" AND "I JUST WANT TO ", STATING HER HEAD REALLY HURTS. WITHIN SECONDS THE PATIENT WILL RELAX AND APPEAR TO BE SLEEPING AGAIN. TONIGHT SHE WILL RESPOND TO VERBAL STIMULATION AND RESPOND APPROPRIATELY IN SHORT SENTENCES BUT WILL QUICKLY GET AGITATED WITH QUESTIONS. ADMIT ASSESSMENT AND HISTORY COMPLETED BEST POSSIBLE AT THIS TIME. DR VALLESTRATE MADE AWARE OF THE PATIENT'S BEHAVIORS AND THAT THEY INCREASED IN FREQUENCY IN THE AFTERNOON. ONE DOSE EACH GIVEN OF TYLENOL, PHENERGAN, AND IMITREX. TORADOL GIVEN TWICE WITH MINIMAL CHANGE NOTICED. PAIN ASSESSMENT DONE WITH FACE & FLACC SCALE, HARD TO ASSESS ACCURATELY WITH PATIENT'S LABILE BEHAVIOR. BED ALARM HAS BEEN ON ALL SHIFT, PATIENT GETS UP TO BATHROOM WITH STANDBY ASSIST. PATIENT HAS RIPPED OFF ID BAND (WAS REPLACED) BUT HAS KEPT R AC IV SITE INTACT.
--- NOTE | 2019-06-08 04:36 | NUR ---
SHIFT SUMMARY: 28 Y/O FEMALE RESTED COMFORTABLY ALL SHIFT, C/O MIGRAINE HEADACHE WITH FIORCET AND TYLENOL 650MG PO GIVEN TWICE WITH RELIEF FELT (LIGHTS DIMMINED IN ROOM WITH DOOR SHUT, AFEBRILE, BED LOW POSITION, CALL LIGHT AT SIDE.
[2019-06-08 05:28] LABS: BASOPHILS ABSOLUTE AUTO 0.03 K/mm3 (0.00-0.23); BASOPHILS PERCENT AUTO 0 % (0-2); EOSINOPHILS ABSOLUTE AUTO 0.62 K/mm3 (0.00-0.68); EOSINOPHILS PERCENT AUTO 6 % (0-6); Hematocrit 33.5 % (33.0-51.0); Hemoglobin 10.4 g/dL (11.5-16.0); IMMATURE GRAN ABSOLUTE AUTO 0.04 K/mm3 (0.00-0.10); IMMATURE GRAN PERCENT AUTO 0 % (0-1); LYMPHOCYTES ABSOLUTE AUTO 1.59 K/mm3 (0.84-5.20); LYMPHOCYTES PERCENT AUTO 15 % (21-46); MONOCYTES ABSOLUTE AUTO 0.78 K/mm3 (0.16-1.47); MONOCYTES PERCENT AUTO 7 % (4-13); Mean Corpuscular HGB 26.7 pg (26.0-34.0); NEUTROPHILS ABSOLUTE AUTO 7.64 K/mm3 (1.96-9.15); NEUTROPHILS PERCENT AUTO 71 % (41-73); Platelet Count 227 K/mm3 (150-400); RDW Coefficient Variation 13.2 % (11.7-14.2); RDW Standard Deviation 41.2 fL (35.1-46.3)
[2019-06-08 05:34] LABS: Mean Corpuscular Volume 86 fL (80-100)
[2019-06-08 06:03] LABS: Alanine Aminotransfer (ALT/SGP 13 U/L (12-78); Albumin, Blood 2.5 g/dL (3.4-5.0); Alk Phos 42 U/L (50-136); Anion Gap 7 mmol/L (6-16); Aspartate Aminotrans (AST/SGOT 10 U/L (12-37); Bilirubin, Total 0.2 mg/dL (0.1-1.0); Blood Urea Nitrogen 12 mg/dL (8-24); Bun/Creatinine Ratio 16.7 (12.0-20.0); CO2, Blood 25 mmol/L (21-32); Calcium, Blood 7.7 mg/dL (8.5-10.1); Chloride, Blood 108 mmol/L (98-108); Creatinine, Blood 0.72 mg/dL (0.40-1.00); Globulin, Blood 2.6 g/dL (2.2-4.0); Glomerular Filtration Rate >60 (60-); Glucose, Blood 89 mg/dL (70-99); Potassium, Blood 3.6 mmol/L (3.5-5.5); Sodium, Blood 140 mmol/L (136-145); Total Protein, Blood 5.1 g/dL (6.4-8.2)
[2019-06-08] MEDS ORDERED: ACET325 PO (11:30)
[2019-06-08] MEDS ORDERED: Fiorinal Capsu1 EACH PO (11:31)
[2019-06-08] MEDS ORDERED: Oyster Shell C500 MG PO (11:35)
[2019-06-08] MEDS ORDERED: NICO21TP TOP (11:36)
[2019-06-08] MEDS ORDERED: AMOCLA875 PO (11:38)
[2019-06-08] MEDS ORDERED: Florastor250 MG PO (11:38)
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
== END 2019-06-08 13:35 | disposition home or self-care (01) | DRG 871 ==
LOC: ER 01:26 → MEDS 06:47 → ENPENDDIS 06-08 11:37 → MEDS 06-08 13:35
PROVIDERS: Emergency Medicine; ADMIT Hospitalist
DX: A41.9 Sepsis, unspecified organism (principal); R65.21 Severe sepsis with septic shock; G92 Toxic encephalopathy; E87.2 Acidosis; G43.109 Migraine with aura, not intractable, without status migrainosus; F15.10 Other stimulant abuse, uncomplicated; F19.10 Other psychoactive substance abuse, uncomplicated; F17.210 Nicotine dependence, cigarettes, uncomplicated; F31.9 Bipolar disorder, unspecified
CPT/HCPCS: 36415; 70450; 71045; 72126; 72129; 72132; 80053; 81001; 83605; 84145; 84703; 85025; 85610; 85730; 87040; 87086; 93005; 93010; 93306; 96365; 96375; 99285-25; A9270; J1170; J1650; J1885; J2060; J2543; J2550; J3030; J3370; J7030; J7050; J7120; Q9967

== ENCOUNTER 2019-07-02 02:57 | Inpatient (IN) | payer OTHER ==
[~2019-07-02] VITALS: Ht 162.6 cm; Wt 66.4 kg
[~2019-07-02 02:57] MED LIST changes: +ACET325 PO; +AMOCLA875 PO; +Fiorinal Capsu1 EACH PO; +Florastor250 MG PO; +Oyster Shell C500 MG PO
[2019-07-02] MEDS ORDERED: Bactrim Ds Tab1 EACH PO (03:34)
[2019-07-02 03:59] LABS: BASOPHILS ABSOLUTE AUTO 0.02 K/mm3 (0.00-0.23); BASOPHILS PERCENT AUTO 0 % (0-2); EOSINOPHILS ABSOLUTE AUTO 0.01 K/mm3 (0.00-0.68); EOSINOPHILS PERCENT AUTO 0 % (0-6); Hematocrit 41.5 % (33.0-51.0); Hemoglobin 13.4 g/dL (11.5-16.0); IMMATURE GRAN ABSOLUTE AUTO 0.13 K/mm3 (0.00-0.10); IMMATURE GRAN PERCENT AUTO 1 % (0-1); LYMPHOCYTES ABSOLUTE AUTO 0.38 K/mm3 (0.84-5.20); LYMPHOCYTES PERCENT AUTO 2 % (21-46); MONOCYTES PERCENT AUTO 5 % (4-13); Mean Corpuscular HGB 27.1 pg (26.0-34.0); Mean Corpuscular HGB Conc 32.3 g/dL (31.5-36.5); Mean Corpuscular Volume 84 fL (80-100); Mean Platelet Volume 10.8 fL (9.1-12.4); NEUTROPHILS ABSOLUTE AUTO 15.52 K/mm3 (1.96-9.15); NEUTROPHILS PERCENT AUTO 92 % (41-73); Platelet Count 248 K/mm3 (150-400); RDW Coefficient Variation 13.4 % (11.7-14.2); RDW Standard Deviation 41.3 fL (35.1-46.3); Red Blood Cell Count 4.95 M/mm3 (3.80-5.20); White Blood Cell Count 16.96 K/mm3 (4.00-11.30)
[2019-07-02 04:15] LABS: Alanine Aminotransfer (ALT/SGP 29 U/L (12-78); Albumin, Blood 3.9 g/dL (3.4-5.0); Albumin/Globulin Ratio 1.1 (0.8-1.8); Alk Phos 62 U/L (50-136); Anion Gap 11 mmol/L (6-16); Aspartate Aminotrans (AST/SGOT 14 U/L (12-37); Bilirubin, Total 0.4 mg/dL (0.1-1.0); Blood Urea Nitrogen 17 mg/dL (8-24); CO2, Blood 23 mmol/L (21-32); Calcium, Blood 9.1 mg/dL (8.5-10.1); Chloride, Blood 105 mmol/L (98-108); Creatinine, Blood 0.81 mg/dL (0.40-1.00); Globulin, Blood 3.5 g/dL (2.2-4.0); Glomerular Filtration Rate >60 (60-); Glucose, Blood 127 mg/dL (70-99); Potassium, Blood 3.9 mmol/L (3.5-5.5); Sodium, Blood 139 mmol/L (136-145); Total Protein, Blood 7.4 g/dL (6.4-8.2)
[2019-07-02 04:34] LABS: Source, Urine Clean Catch
[2019-07-02 04:38] LABS: Appearance, Urine Clear (Clear); Bilirubin, Urine Neg (Neg); Blood, Urine Neg (Neg); Color, Urine Amber (P-Yellow); Glucose Qualitative, Urine Neg (Neg); Ketones, Urine 1+ (Neg); Leukocyte Esterase, Urine 1+ (Neg); Nitrite, Urine Neg (Neg); Protein, Urine 1+ (Neg); Urobilinogen, Urine NORM (Normal)
[2019-07-02 04:43] LABS: Red Blood Cells, Urine 0-2 /hpf (0-2)
[2019-07-02 04:44] LABS: Bacteria Mod /hpf; Mucus Light (0-Heavy); Squamous Epithelial Cells Few /hpf (Few)
[2019-07-02 04:48] LABS: U Amphetamine Screen DETECTED; U Barbituate Screen Not Detected; U Benzodiazapine Screen DETECTED; U Cannabinoids Screen Not Detected; U Cocaine Screen Not Detected; U Methadone Screen Not Detected; U Methamphetamine Screen DETECTED; U Opiates Screen Not Detected; U Phencyclidine Screen Not Detected
[2019-07-02 04:49] LABS: U Buprenorphine Screen Not Detected; U Oxycodone Screen Not Detected; U Propoxyphene Screen Not Detected
--- NOTE | 2019-07-02 05:02 | NUR ---
NOTIFIED BY ALEX CHOW RN THAT PATIENT WILL BE TRANSFERRED TO ICU 9. REPORT RECEIVED FROM NEDRA BOOGIE RN. WAITING FOR ADMISSION ORDERS FROM DR. LEMOS.
[2019-07-02 06:23] LABS: Source, Urine Catheter
[2019-07-02 06:25] LABS: Bilirubin, Urine Neg (Neg); Blood, Urine Neg (Neg); Glucose Qualitative, Urine Neg (Neg); Ketones, Urine Neg (Neg); Leukocyte Esterase, Urine 1+ (Neg); Nitrite, Urine Neg (Neg); Protein, Urine Neg (Neg); Specific Gravity, Urine 1.015 (1.003-1.022); Urobilinogen, Urine NORM (Normal)
[2019-07-02 06:51] LABS: Appearance, Urine Clear (Clear); Color, Urine Yellow (P-Yellow)
[2019-07-02 06:52] LABS: Bacteria Not Seen /hpf; Red Blood Cells, Urine Not Seen /hpf (0-2); Squamous Epithelial Cells Few /hpf (Few); White Blood Cells, Urine 0-2 /hpf (0-5)
--- NOTE | 2019-07-02 07:45 | NUR ---
ARRIVAL TO ICU PT ARRIVED TO ICU 12 AT APPROXIMATELY 0543. PT ARRIVES ANXIOUS, TEARFUL, TACHYCARDIC, HYPOTENSIVE, FEBRILE AND WITH SEVERE PAIN IN HEAD AND NECK. DR. LEMOS TO BEDSIDE FOR ASSESSMENT. SINCE THEN, PT'S BLOOD PRESSURE IMPROVED WITH 500 ML BOLUS AND 125 ML/HR MAINTENANCE FLUID PER DR. LEMOS. TEMP CONTINUES TO ELEVATE. PT MEDICATED WITH FENTANYL AND ATIVAN AND CONTINUES TO BE ANXIOUS, PAINFUL AND TEARFUL. STATES, "STOP DOING THIS I DON'T WANT TO DO THIS." EDUCATED PT ON HER RIGHT TO REFUSE LABS, ETC AND PT STATES, "NO IT'S OK KEEP GOING." PT'S SIGNIFICANT OTHER TO BEDSIDE AND PT REPEATEDLY CRYING, "I'M SORRY" OVER AND OVER AGAIN. PT'S BOYFRIEND NOT LOOKING AT OR RESPONDING TO PATIENT UNTIL HE EVENTUALLY YELLS "YEAH ME TOO." ATTEMPTED TO TALK WITH SIGNIFICANT OTHER AND HE BECAME AGITATED. ENCOURAGED SIGNIFICANT OTHER TO GO FOR BREAKFAST OR COFFEE IN [place] SO THAT WE CAN DO SOME PATIENT CARE. HE BECOMES ANGRY AND YELLS REPEATEDLY "WHY THOUGH." AND THROWS HIS JACKET. PT LEFT WITHOUT FURTHER INCIDENT. ASKED PT IF SHE FELT SAFE AT HOME AND SHE SAID, "YEAH HE'S REALLY NICE TO ME HE IS JUST COMING DOWN OFF OF DRUGS." PT CONTINUES TO BE FEARFUL AND ANXIOUS REGARDLESS OF ENCOURAGEMENT. CONCHITA RN TO BEDSIDE TO ASSUME CARE. REPORT GIVEN.
--- NOTE | 2019-07-02 07:50 | NUR ---
SPOKE WITH REGARDING PT'S TEMP OF 102.2. ORDERS RECEIVED TO GIVE PT 1 LITER NS BOLUS AND TYLENOL FOR FEVER. UPDATED HER ALSO OF PT'S STATUS.
--- NOTE | 2019-07-02 17:44 | NUR ---
PT TRANSFERED TO ROOM 343. REPORT WAS GIVEN TO QUITA BRADFORD PRIOR TO PT'S ARRIVAL. ALL BELONGINGS GATHERED AND TRANSPORTED WITH PT AND SIGNIFICANT OTHER. PT WAS TEARFUL THROUGHOUT TRANSFER AND WAS STATING THAT SHE WAS UNABLE TO MOVE, HOWEVER PT WAS ABLE TO TRANSFER HERSELF FROM BED TO WHEELCHAIR WITH STANDBY ASSIST.
--- NOTE | 2019-07-02 17:45 | NUR ---
PT ARRIVED TO ROOM VIA STRETCHER BOYFRIEND AT BEDSIDE. ORIENTED TO ROOM AND FREQUENT ROUNDING SCHEDULE. BED LOW AND IN LOCKED POSITION. CALL LIGHT WITHIN REACH.
--- NOTE | 2019-07-02 18:19 | NUR ---
SHIFT SUMMARY RECEIVED PT THIS EVENING FROM ICU. WEEPING AND MOANING C/O HEADACHE. NEEDS MOTIVATION TO SIT UP IN BED AND PARTICIPATE IN CARE. OX3. SIGNIFICANT OTHER AT BEDSIDE. DECREASED APPETITE. RECENT INCARCERATION AND METH USE.
[2019-07-03 06:01] LABS: Alanine Aminotransfer (ALT/SGP 23 U/L (12-78); Albumin, Blood 2.6 g/dL (3.4-5.0); Alk Phos 41 U/L (50-136); Anion Gap 9 mmol/L (6-16); Aspartate Aminotrans (AST/SGOT 16 U/L (12-37); Bilirubin, Total 0.2 mg/dL (0.1-1.0); Blood Urea Nitrogen 11 mg/dL (8-24); Bun/Creatinine Ratio 14.8 (12.0-20.0); CO2, Blood 23 mmol/L (21-32); Calcium, Blood 7.9 mg/dL (8.5-10.1); Chloride, Blood 110 mmol/L (98-108); Creatinine, Blood 0.74 mg/dL (0.40-1.00); Globulin, Blood 2.7 g/dL (2.2-4.0); Glomerular Filtration Rate >60 (60-); Glucose, Blood 121 mg/dL (70-99); Potassium, Blood 3.9 mmol/L (3.5-5.5); Sodium, Blood 142 mmol/L (136-145)
[2019-07-03 06:02] LABS: Total Protein, Blood 5.3 g/dL (6.4-8.2)
--- NOTE | 2019-07-03 07:36 | NUR ---
Shift Summary Patient slept well overnight. WAs slightly tachycardic, but had no fevers overnight. Her peralta catheter was removed this AM, as patient stated she felt she needed to urinate, and hourly I&O was no longer ordered. She did urinated after peralta was removed. She c/o headaches, but was able to fall asleep with scheduled toradol.
--- NOTE | 2019-07-03 17:38 | NUR ---
SHIFT SUMMARY: NO ACUTE CHANGES TO REPORT THIS SHIFT. PT A&O; IRRITABILITY R/T HEADACHE PAIN; MEDICATED PER EMAR; NEW PAIN MEDS ORDERED THIS SHIFT. S/O IN ROOM T/O SHIFT. PT UP TO BR c SBA. TELE IN PLACE; SR T/O SHIFT. NICOTINE PATCH IN PLACE. IV ABX CONTINUING. WCTM.
--- NOTE | 2019-07-04 04:46 | NUR ---
SHIFT SUMMARY NO ACUTE EVENTS OVERNIGHT. PATIENT SLEPT OFF AND ON THROUGHOUT THE NIGHT WITH SIGNIFICANT OTHER IN HOSPITAL BED WITH HER. PATIENT COMPLAINED OF A HEADACHE "BEHIND" HER EYES. PATIENT STATED ON MULTIPLE OCCASIONS THAT THE IMMITREX SHE HAD TAKEN EARLIER IN THE DAY HAD WORKED THE BEST AND WOUD LIKE A PRESCRIPTION FOR IT. PATIENT STATES SHE HAD A PRESCRIPTION FOR IMMITREX BUT IT WASNT COVERED BY [facility] AND SHE COULDNT AFFORD THE PILLS. INDEPENDENT IN ROOM. WILL CONINUE TO MONITOR.
[2019-07-04 06:37] LABS: Alanine Aminotransfer (ALT/SGP 28 U/L (12-78); Albumin, Blood 2.8 g/dL (3.4-5.0); Albumin/Globulin Ratio 0.9 (0.8-1.8); Alk Phos 41 U/L (50-136); Anion Gap 7 mmol/L (6-16); Aspartate Aminotrans (AST/SGOT 11 U/L (12-37); Bilirubin, Total <0.1 mg/dL (0.1-1.0); Blood Urea Nitrogen 9 mg/dL (8-24); Bun/Creatinine Ratio 12.8 (12.0-20.0); CO2, Blood 28 mmol/L (21-32); Calcium, Blood 8.4 mg/dL (8.5-10.1); Chloride, Blood 110 mmol/L (98-108); Creatinine, Blood 0.71 mg/dL (0.40-1.00); Globulin, Blood 3.2 g/dL (2.2-4.0); Glomerular Filtration Rate >60 (60-); Glucose, Blood 126 mg/dL (70-99); Potassium, Blood 3.9 mmol/L (3.5-5.5); Sodium, Blood 145 mmol/L (136-145)
[2019-07-04] MEDS ORDERED: Imitrex50 MG PO (14:30)
--- NOTE | 2019-07-04 15:47 | NUR ---
PATIENT DISCHARGE: PATIENT DISCHARGED TO HOME THIS SHIFT. MEDICATION RECONCILIATION COMPLETED; MED LIST FAXED TO [facility]. DISCHARGE EDUCATION COMPLETED WITH PATIENT AND S/O. PATIENT INDEPENDENT IN ROOM; [facility]. PATIENT DEPARTED MEDICAL FLOOR AT 1530. PATIENT DEPARTED [facility] VIA PRIVATE AUTO.
== END 2019-07-04 16:07 | disposition home or self-care (01) | DRG 897 ==
LOC: ER 02:57 → ICUW 02:58 → MEDS 17:36
PROVIDERS: Emergency Medicine; Internal Medicine; ADMIT Internal Medicine
DX: F15.10 Other stimulant abuse, uncomplicated (principal); R65.10 Systemic inflammatory response syndrome (SIRS) of non-infectious origin without acute organ dysfunction; F31.9 Bipolar disorder, unspecified; G43.819 Other migraine, intractable, without status migrainosus; F41.9 Anxiety disorder, unspecified; F17.210 Nicotine dependence, cigarettes, uncomplicated; E86.0 Dehydration; M54.9 Dorsalgia, unspecified
CPT/HCPCS: 36415; 70450; 71046; 80053; 81001; 82947; 83605; 83690; 84703; 85025; 87040; 87086; 93005; 93010; 96361; 96365; 96366; 96367; 96374; 96375; 96376; 99285-25; A9270; G0378; J0696; J1100; J1650; J1885; J2060; J2270; J2405; J2543; J3010; J3030; J3370; J7030

== ENCOUNTER 2019-08-23 09:22 | Emergency (ER) | payer OTHER ==
[~2019-08-23] VITALS: Ht 162.6 cm; Wt 68.0 kg
[~2019-08-23 09:22] MED LIST changes: +Imitrex50 MG PO
== END 2019-08-23 11:10 | disposition home or self-care (01) ==
LOC: ER 09:22
DX: T74.21XA Adult sexual abuse, confirmed, initial encounter (principal); F15.10 Other stimulant abuse, uncomplicated; F41.9 Anxiety disorder, unspecified; F32.9 Major depressive disorder, single episode, unspecified; G43.909 Migraine, unspecified, not intractable, without status migrainosus; F17.210 Nicotine dependence, cigarettes, uncomplicated
CPT/HCPCS: 96372; 99284-25; J0696

== ENCOUNTER 2020-02-23 17:36 | Emergency (ER) | payer OTHER ==
[~2020-02-23] VITALS: Ht 162.6 cm; Wt 67.6 kg
[2020-02-23 18:15] LABS: BASOPHILS ABSOLUTE AUTO 0.04 K/mm3 (0.00-0.23); BASOPHILS PERCENT AUTO 1 % (0-2); EOSINOPHILS ABSOLUTE AUTO 0.14 K/mm3 (0.00-0.68); EOSINOPHILS PERCENT AUTO 2 % (0-6); Hematocrit 42.4 % (33.0-51.0); Hemoglobin 13.6 g/dL (11.5-16.0); IMMATURE GRAN ABSOLUTE AUTO 0.02 K/mm3 (0.00-0.10); IMMATURE GRAN PERCENT AUTO 0 % (0-1); LYMPHOCYTES ABSOLUTE AUTO 2.22 K/mm3 (0.84-5.20); LYMPHOCYTES PERCENT AUTO 28 % (21-46); MONOCYTES ABSOLUTE AUTO 0.76 K/mm3 (0.16-1.47); MONOCYTES PERCENT AUTO 10 % (4-13); Mean Corpuscular HGB 26.6 pg (26.0-34.0); Mean Corpuscular HGB Conc 32.1 g/dL (31.5-36.5); Mean Corpuscular Volume 83 fL (80-100); Mean Platelet Volume 9.7 fL (9.1-12.4); NEUTROPHILS ABSOLUTE AUTO 4.71 K/mm3 (1.96-9.15); NEUTROPHILS PERCENT AUTO 60 % (41-73); Platelet Count 278 K/mm3 (150-400); RDW Coefficient Variation 12.4 % (11.7-14.2); RDW Standard Deviation 37.9 fL (35.1-46.3); Red Blood Cell Count 5.11 M/mm3 (3.80-5.20); White Blood Cell Count 7.89 K/mm3 (4.00-11.30)
[2020-02-23 18:29] LABS: Alanine Aminotransfer (ALT/SGP 18 U/L (12-78); Albumin/Globulin Ratio 1.2 (0.8-1.8); Alk Phos 68 U/L (50-136); Anion Gap 5 mmol/L (6-16); Aspartate Aminotrans (AST/SGOT 12 U/L (12-37); Bilirubin, Total 0.4 mg/dL (0.1-1.0); Blood Urea Nitrogen 16 mg/dL (8-24); Bun/Creatinine Ratio 20.8 (12.0-20.0); CO2, Blood 26 mmol/L (21-32); Calcium, Blood 8.7 mg/dL (8.5-10.1); Chloride, Blood 107 mmol/L (98-108); Creatinine, Blood 0.77 mg/dL (0.40-1.00); Globulin, Blood 3.3 g/dL (2.2-4.0); Glomerular Filtration Rate >60 (60-); Glucose, Blood 86 mg/dL (70-99); Sodium, Blood 138 mmol/L (136-145); Total Protein, Blood 7.3 g/dL (6.4-8.2)
[2020-02-23] MEDS ORDERED: ONDA4ODT MM (18:55)
[2020-04-05] MEDS ORDERED: ACET325 PO (11:06)
[2020-04-05] MEDS ORDERED: TAMS.4ER PO (11:07)
[2020-04-05] MEDS ORDERED: CEPH500 PO (11:07)
[2020-04-05] MEDS ORDERED: PROBIOTIC PO (11:17)
[2020-04-10] MEDS ORDERED: METPRE4DP PO (10:53)
[2020-04-10] MEDS ORDERED: CODACE30 PO (10:53)
[2020-04-10] MEDS ORDERED: IBUP600 PO (10:53)
[2020-04-13] MEDS ORDERED: KETO10 PO (16:06)
[2020-04-13] MEDS ORDERED: LACTOBACILLUS1 EAC4 PO (16:07)
[2020-04-14] MEDS ORDERED: CEFTRIAXONE IV (08:22)
== END 2020-02-23 19:05 | disposition home or self-care (01) ==
LOC: ER 17:36
PROVIDERS: Physician Assistant
DX: R11.2 Nausea with vomiting, unspecified (principal); Z79.899 Other long term (current) drug therapy; F41.9 Anxiety disorder, unspecified; F31.9 Bipolar disorder, unspecified; F17.210 Nicotine dependence, cigarettes, uncomplicated
CPT/HCPCS: 36415; 74176; 80053; 84703; 85025; 96374; 99284-25; J2405

== ENCOUNTER → 2020-04-02 | Outpatient (CLI) | payer OTHER ==
[~2020-04-02] MED LIST changes: +CEFTRIAXONE IV; +KETO10 PO; +LACTOBACILLUS1 EAC4 PO; +METPRE4DP PO; +PROBIOTIC PO; +TAMS.4ER PO
[2020-04-06 12:09] LABS: CHLAMYDIA TRACHOMATIS, NAA Negative (Negative); NEISSERIA GONORRHOEAE, NAA Negative (Negative)
== END ==
LOC: LAB 19:15 → LAB SHORT 19:15
PROVIDERS: Family Medicine
DX: R30.9 Painful micturition, unspecified (principal); R10.30 Lower abdominal pain, unspecified
CPT/HCPCS: 87086; 87491; 87591

== ENCOUNTER 2020-04-15 00:08 | Day surgery (SDC) | payer OTHER | END 2020-04-15 17:08 | disposition home or self-care (01) | LOC: ATC 00:08 | DX: G03.0 Nonpyogenic meningitis (principal); F17.210 Nicotine dependence, cigarettes, uncomplicated; F41.9 Anxiety disorder, unspecified; M54.9 Dorsalgia, unspecified; G43.909 Migraine, unspecified, not intractable, without status migrainosus; N39.0 Urinary tract infection, site not specified; D50.9 Iron deficiency anemia, unspecified; F15.10 Other stimulant abuse, uncomplicated; F31.9 Bipolar disorder, unspecified; Z79.899 Other long term (current) drug therapy | CPT/HCPCS: 96365; J0696 ==

== ENCOUNTER 2021-07-15 03:43 | Emergency (ER) | payer OTHER ==
[~2021-07-15] VITALS: Ht 162.6 cm; Wt 65.8 kg
[2021-07-15] MEDS ORDERED: ESCI10 PO (03:54)
[2021-07-15] MEDS ORDERED: Lithium Carbon150 MG PO (03:54)
[2021-07-15] MEDS ORDERED: METFORMIN HCL500 M2 PO (03:54)
[2021-07-15] MEDS ORDERED: GLIP2.5ER (03:54)
[2021-07-15] MEDS ORDERED: IMITREX50 M2 PO (03:55)
[2021-07-15] MEDS ORDERED: TRAZ50 (03:55)
[2021-07-15] MEDS ORDERED: SUMA25 PO (05:30)
== END 2021-07-15 06:21 | disposition home or self-care (01) ==
LOC: ER 03:43
DX: R51.9 Headache, unspecified (principal); Z79.899 Other long term (current) drug therapy; Z79.84 Long term (current) use of oral hypoglycemic drugs; E11.9 Type 2 diabetes mellitus without complications; F17.210 Nicotine dependence, cigarettes, uncomplicated
CPT/HCPCS: 82947; 96372-59; 96374; 96375; 99283-25; A9270; J1100; J1885; J2765; J3030; J7030

== ENCOUNTER 2021-08-15 17:42 | Emergency (ER) | payer OTHER ==
[~2021-08-15 17:42] MED LIST changes: +GLIP2.5ER; +IMITREX50 M2 PO; +Lithium Carbon150 MG PO; +METFORMIN HCL500 M2 PO; +SUMA25 PO; +TRAZ50
== END 2021-08-15 18:39 | disposition left against medical advice (07) ==
LOC: ER 17:42
DX: Z53.21 Procedure and treatment not carried out due to patient leaving prior to being seen by health care provider (principal)

== ENCOUNTER 2022-01-04 12:58 | Emergency (ER) | payer OTHER ==
[~2022-01-04] VITALS: Ht 162.6 cm; Wt 61.2 kg
[2022-01-04] MEDS ORDERED: IBUP400 PO (13:51)
[2022-01-04] MEDS ORDERED: Bactrim Ds Tab1 EACH PO (13:51)
[2022-01-05] MEDS ORDERED: IBU600 MG PO (02:00)
[2022-01-05] MEDS ORDERED: Bactrim Ds Tab1 EACH PO (02:00)
== END 2022-01-04 14:10 | disposition home or self-care (01) ==
LOC: ER 12:58
DX: N75.0 Cyst of Bartholin's gland (principal); F41.9 Anxiety disorder, unspecified; E11.9 Type 2 diabetes mellitus without complications; F31.9 Bipolar disorder, unspecified; F17.210 Nicotine dependence, cigarettes, uncomplicated; Z79.899 Other long term (current) drug therapy; Z79.84 Long term (current) use of oral hypoglycemic drugs
CPT/HCPCS: A9270; J1885

== ENCOUNTER 2022-04-07 15:12 | Emergency (ER) | payer OTHER ==
[~2022-04-07] VITALS: Ht 162.6 cm; Wt 58.5 kg
[~2022-04-07 15:12] MED LIST changes: +IBU600 MG PO
[2022-04-07 16:32] LABS: BASOPHILS ABSOLUTE AUTO 0.04 K/mm3 (0.00-0.23); BASOPHILS PERCENT AUTO 0 % (0-2); EOSINOPHILS ABSOLUTE AUTO 0.02 K/mm3 (0.00-0.68); EOSINOPHILS PERCENT AUTO 0 % (0-6); Hemoglobin 13.2 g/dL (11.5-16.0); IMMATURE GRAN ABSOLUTE AUTO 0.04 K/mm3 (0.00-0.10); IMMATURE GRAN PERCENT AUTO 0 % (0-1); LYMPHOCYTES ABSOLUTE AUTO 0.82 K/mm3 (0.84-5.20); LYMPHOCYTES PERCENT AUTO 6 % (21-46); MONOCYTES ABSOLUTE AUTO 1.34 K/mm3 (0.16-1.47); MONOCYTES PERCENT AUTO 10 % (4-13); Mean Corpuscular HGB 26.5 pg (26.0-34.0); Mean Corpuscular Volume 80 fL (80-100); Mean Platelet Volume 9.7 fL (9.1-12.4); NEUTROPHILS PERCENT AUTO 83 % (41-73); Platelet Count 332 K/mm3 (150-400); RDW Coefficient Variation 13.1 % (11.7-14.2); RDW Standard Deviation 37.9 fL (35.1-46.3); Red Blood Cell Count 4.98 M/mm3 (3.80-5.20); White Blood Cell Count 13.26 K/mm3 (4.00-11.30)
[2022-04-07 16:56] LABS: Albumin, Blood 3.7 g/dL (3.4-5.0); Bilirubin, Total 0.2 mg/dL (0.1-1.0); Bun/Creatinine Ratio 14.4 (12.0-20.0); Calcium, Blood 9.7 mg/dL (8.5-10.1); Creatinine, Blood 0.83 mg/dL (0.40-1.00); Globulin, Blood 3.8 g/dL (2.2-4.0); Potassium, Blood 3.9 mmol/L (3.5-5.5); Total Protein, Blood 7.5 g/dL (6.4-8.2)
[2022-04-07 17:13] LABS: Source, Urine Clean Catch
[2022-04-07 17:23] LABS: Appearance, Urine Clear (Clear); Bilirubin, Urine Neg (Neg); Blood, Urine Neg (Neg); Color, Urine Yellow (P-Yellow); Glucose Qualitative, Urine Neg (Neg); Ketones, Urine Neg (Neg); Leukocyte Esterase, Urine Neg (Neg); Nitrite, Urine Neg (Neg); Protein, Urine Neg (Neg); Specific Gravity, Urine 1.015 (1.003-1.022); Urobilinogen, Urine NORM (Normal)
[2022-04-07] MEDS ORDERED: DOXY100 PO (22:04)
== END 2022-04-07 23:15 | disposition home or self-care (01) ==
LOC: ER 15:12
PROVIDERS: Emergency Medicine
DX: A41.9 Sepsis, unspecified organism (principal); L03.113 Cellulitis of right upper limb; E11.9 Type 2 diabetes mellitus without complications; F17.210 Nicotine dependence, cigarettes, uncomplicated
CPT/HCPCS: 36415; 71045; 80053; 81003; 83605; 83735; 84703; 85025; 93005; 93010; A9270; J0696; J0780; J1200; J1885; J2765; J3030; J3370; J7030; J7050; J7060